=== PATIENT | male | born 1990 | race Caucasian/White ===

== ENCOUNTER 2024-04-23 02:32 | Emergency (ER) | payer OTHER, SELFPAY ==
[2024-04-23 02:38] VITALS: BP 158/106
[2024-04-23 03:22] VITALS: BMI 21.9
[2024-04-23 03:45] LABS: % Basophils 0.7 % (0-2); % Eosinophils 8.1 % (0-6); % Immature Granulocytes 0.2 % (0-0.5); % Lymphocytes 32.6 % (20.5-51.1); % Monocytes 8.6 % (1.7-9.3); % Neutrophils 49.8 % (42.2-75.2); Absolute Basophils 0.1 10^3/uL (0-0.2); Absolute Eosinophils 0.7 10^3/uL (0-0.7); Absolute Lymphocytes 2.8 10^3/uL (1.2-3.4); Absolute Monocytes 0.7 10^3/uL (0.1-0.6); Absolute Neutrophils 4.3 10^3/uL (1.4-6.5); Hemoglobin 14.5 g/dL (13.0-18.0); Mean Corp Hgb Conc. 35.4 g/dL (33.0-37.0); Mean Corpuscular Hgb 31.2 pg (27.0-31.0); Mean Corpuscular Volume 88.2 fL (80.0-94.0); Mean Platelet Volume 8.7 fL (7.4-10.4); Nucleated Red Blood Cells % 0 % (-); Platelet Count 317 10^3/uL (130-400); Red Blood Cell Count 4.65 10^6/uL (4.70-6.10); Red Cell Dist. Width 12.3 % (11.5-14.5); White Blood Cell Count 8.5 10^3/uL (4.8-10.8)
--- NOTE | 2024-04-23 03:49 | ED.MUSCINJ ---
HPI-Injury
General
Chief Complaint: Extremity Pain (non-traumatic)
Source: patient
Time Seen by Provider: 04/23/24 03:15
Nursing documentation reviewed up to this point in time: agreed with
History of Present Illness-Injury
Initial Injury comments:
Pleasant 33-year-old male presents the emergency department with right ankle redness. He states that while at work on Tuesday he was walking to the elevator and felt some pain. He states that his ankle and lower leg are red and swollen. He
initially told triage that there was streaking going up his leg but admits that is not the case and states that he said that because he wanted to 'get back to the emergency department sooner '. Patient denies fever, chills, nausea or vomiting. He
has no history of gout. He was seen at [facility] and had a full workup including ultrasound which was negative. This was earlier this evening. He was discharged without antibiotics which he was upset over so he came to this emergency
department. Patient feels that this is infectious and requests antibiotics.
Review of Systems
Review of Systems
Allergies reviewed?: Yes
All Other Systems: ROS reviewed and negative except as documented in HPI and ROS
Constitutional: Reports no symptoms
EENT: Reports no symptoms
Respiratory: Reports no symptoms
Cardiac: Reports no symptoms
ABD/GI: Reports no symptoms
: Reports no symptoms
Musculoskeletal: Reports joint swelling, muscle pain and muscle stiffness
Skin: Reports other (Erythema)
Neurological: Reports no symptoms
Endocrine: Reports no symptoms
Hematologic/Lymphatic: Reports no symptoms
Psychiatric: Reports anxiety
Musculoskeletal Injury Exam
Musculoskeletal Injury Exam
Right Ankle:
Pain with Movement?: Mild
Tender to palpation?: Mild
Soft tissue swelling?: Mild
External deformity and angulation?: None
Joint effusion?: None
Contusion?: None
Hematoma-local bleeding into tissue?: None
Strain- Sprain- Tear (Connective tissue injury)?: Mild
Crepitus with movement?: No
Joint instability?: No
Malalignment/deformity?: No
Range of motion: Full
Distal skin color and temperature: normal-warm & good color
Capillary Refill: normal
Normal distal neurovascular exam?: Yes
Phy Exam
General Physical Exam
General Presentation: well appearing and no apparent distress
General age: appears stated age
General Skin: warm and dry
General Habitus: normal
General Mental: alert
General Hydration: appears well hydrated
Cardiovascular Exam
Cardiovascular Exam: regular rate/rhythm
Musculoskeletal Exam
Musculoskeletal Exam: full ROM
Sepsis
Sepsis Screening
Sepsis Assessment: Sepsis Ruled Out
Sepsis Screen
Sepsis Screen: Sepsis Ruled Out
Date: 04/23/24
Time: 06:48
Injury Course
Orders/Labs/Results
Orders:
Orders
04/23/24 03:33
CRP [C-Reactive Protein] Urgent
Complete Blood Count/With Diff Urgent
Comprehensive Metabolic Panel Urgent
Procalcitonin Urgent
PCT Algorithmm Indication: Sepsis
Sed Rate [Erythrocyte Sed Rate] Urgent
04/23/24 03:41
Cephalexin Monohydrate [Keflex] 500 mg .ROUTE .STK-MED ONE
04/23/24 04:01
Cephalexin Monohydrate [Keflex] 500 mg PO NOW STA
04/23/24 04:03
0.9% Sodium Chloride 1000 ml [Nss] 1,000 ml IV BOLUS
Abnormal Lab Results
04/23/24
03:33
RBC 4.65 L 10^6/uL
(4.70-6.10)
MCH 31.2 H pg
(27.0-31.0)
Absolute Monos (auto) 0.7 H 10^3/uL
(0.1-0.6)
Eosinophils % 8.1 H %
(0-6)
ESR 24 H mm/hour
(0-20)
Glucose 113 H mg/dl
(70-99)
C-Reactive Protein 25.70 H mg/L
(0.0-10.00)
04/23/24 03:33
04/23/24 03:33
*Radiology
Radiology exam reviewed: other (By report normal ultrasound from [facility] ruling out DVT)
*Pulse Oximetry
Patient hypoxic: no
*Critical Care Note
Total Time (30-74mins, 75-104mins- exclusive of procedures): Not Applicable
ED Attending Note
-
Portions of this chart may have been created with voice recognition software.� Occasional wrong word or��sound alike� substitutions may have occurred due to the inherent limitations of voice recognition software.
Discharge Plan
Departure
Patient Disposition: Home (Routine Discharge)
Date of Disposition: 04/23/24
Time of Disposition: 04:09
Patient with high blood pressure during this ER visit?: Yes
Condition: Good
Discharge Problem:
Ankle pain, Cellulitis
Instructions: Muscle and Bone Pain (DC), Cellulitis (skin infection) in adults - Discharge instructions, BLOOD PRESSURE
Prescriptions:
New
cephalexin 500 mg capsule
500 mg PO BID 7 Days Qty: 14 0RF
Referrals:
[facility] [Provider Group] - As needed
Herberth Peralta MD [Family Provider] -
Activity Restrictions/Additional Instructions:
It was a pleasure meeting you and taking part in your care. We hope for your continued healing and wellness.
Please read discharge instructions in their entirety. However, they are for general education and may not describe your exact diagnosis at discharge. Information on your ER visit and medical conditions were discussed with you along with appropriate
follow up information...
If indicated, please take your medications as instructed and indicated on discharge paperwork.
Please schedule a follow up appointment as directed. Call to schedule an appointment
Please return to the emergency department with ANY change in, persisting, or worsening of symptoms. If any of your symptoms do not improve, or persist, or become more severe within 6-12 hours, please return to the emergency department for further
care.
Please return to the emergency department if you develop a headache, neck pain/stiffness, fever greater than 100.4F, chest pain, shortness of breath, persistent nausea, vomiting, slurred speech, difficulty walking, numbness/tingling, weakness, signs
of infection or any other symptoms that are worrisome to you.
If you have any questions or concerns please do not hesitate to call the Hospital at or E-mail me directly at [email or web address]
Interventions
Interventions:
*Risk Screen - Suicide Last Done: 04/23/24 02:35
*General Assessment Last Done: 04/23/24 03:23
*Neglect/Abuse Screening Last Done: 04/23/24 02:35
ED- Fall Risk Assessment Last Done: 04/23/24 03:48
*ED COVID-19 Vaccine History Last Done: 04/23/24 03:23
*Nursing Disposition Last Done: 04/23/24 04:41
ED-Skin Assessment Last Done: 04/23/24 03:46
ED-Peripheral Vascular Assessment Last Done: 04/23/24 03:46
ED-Musculoskeletal Assessment Last Done: 04/23/24 03:46
Discharge Date and Time
Discharge Date/Time: 04/23/24 04:41
Print Language: UKRAINIAN
[2024-04-23 04:01] LABS: Erythrocyte Sed Rate 24 mm/hour (0-20)
[2024-04-23] MEDS: KEFLEX 500 MG PO (04:02)
[2024-04-23 04:03] LABS: ALT (SGPT) 23 U/L (0-50); AST (SGOT) 22 U/L (17-59); Albumin 4.2 g/dl (3.5-5.0); Alkaline Phosphatase 67 U/L (38-126); Blood Urea Nitrogen 16 mg/dl (9-20); Calcium 9.4 mg/dl (8.4-10.2); Carbon Dioxide 29 mmol/L (22-30); Chloride 102 mmol/L (98-107); Estimated Creatinine Clearance > 125 ml/min; Glucose 113 mg/dl (70-99); Potassium 4.4 mmol/L (3.5-5.1); Sodium 140 mmol/L (135-145); Total Bilirubin 0.3 mg/dl (0.2-1.3); Total Protein 7.1 g/dl (6.3-8.2); eGFR > 60.00
[2024-04-23] MEDS: NSS 1000 IV (04:03)
[2024-04-23 04:25] LABS: Procalcitonin < 0.05 ng/ml (0.0-0.25)
[2024-04-23 04:40] VITALS: BP 134/73
== END 2024-04-23 04:41 | disposition home or self-care (01) ==
LOC: EMR 02:32
PROVIDERS: EMERGENCY PHYSICIAN Student in an Organized Health Care Education/Training Program; FAMILY PHYSICIAN Family Medicine
DX: L03.115 Cellulitis of right lower limb (principal); M25.571 Pain in right ankle and joints of right foot
CPT/HCPCS: 96360; 99284; 80053; 84145; 85025; 85652; 86140